=== PATIENT | female | born 1995 | race Two or more races ===

== ENCOUNTER 2023-12-08 11:13 | Emergency (ER) | payer MEDICAID, OTHER ==
[~2023-12-08] VITALS: Ht 172.7 cm; Wt 159.2 kg
[2023-12-08] MEDS ORDERED: HYDR50TA69 PO (14:13)
[2023-12-08] MEDS: hydrOXYzine 25 MG TAB or CAP PO ONE (14:38)
[2023-12-08 14:41] VITALS: BP 158/88; PULSE 88; RESP 18; TEMP 98.9; O2SAT 99
== END 2023-12-08 14:44 | disposition home or self-care (01) ==
LOC: ER 11:13
DX: F41.1 Generalized anxiety disorder (principal); Z86.2 Personal history of diseases of the blood and blood-forming organs and certain disorders involving the immune mechanism